=== PATIENT | female | born 1945 | race Caucasian/White ===

== ENCOUNTER → 2023-05-24 14:20 | Outpatient (REF) | payer MEDICARE, SELFPAY | LOC: RAD 14:20 | PROVIDERS: ATTENDING PHYSICIAN Nurse Practitioner Family | DX: R09.89 Other specified symptoms and signs involving the circulatory and respiratory systems (principal) | CPT/HCPCS: 93880 ==

== ENCOUNTER → 2023-08-01 08:52 | Outpatient (REF) | payer MEDICARE, SELFPAY | LOC: RAD 08:52 | PROVIDERS: ATTENDING PHYSICIAN Nurse Practitioner Family | DX: M25.511 Pain in right shoulder (principal) | CPT/HCPCS: 73030 ==

== ENCOUNTER → 2023-12-26 10:32 | Outpatient (REF) | payer MEDICARE, SELFPAY | LOC: WDC 10:32 | PROVIDERS: ATTENDING PHYSICIAN Nurse Practitioner Family | DX: Z12.31 Encounter for screening mammogram for malignant neoplasm of breast (principal) | CPT/HCPCS: 77063; 77067 ==

== ENCOUNTER → 2025-01-13 14:33 | Outpatient (REF) | payer MEDICARE, SELFPAY | LOC: WDC 14:33 | PROVIDERS: ATTENDING PHYSICIAN Nurse Practitioner Family | DX: Z12.31 Encounter for screening mammogram for malignant neoplasm of breast (principal) | CPT/HCPCS: 77063; 77067 ==

== ENCOUNTER → 2025-02-02 08:59 | Outpatient (REF) | payer MEDICARE, SELFPAY | LOC: RAD 08:59 | PROVIDERS: ATTENDING PHYSICIAN Physician Assistant; FAMILY PHYSICIAN Nurse Practitioner Family | DX: M81.0 Age-related osteoporosis without current pathological fracture (principal) | CPT/HCPCS: 77080 ==